=== PATIENT | male | born 1950 | race Caucasian/White ===

== ENCOUNTER 2016-09-02 06:15 | Day surgery (SDC) | payer OTHER, MEDICARE ==
--- NOTE | ~2016-09-02 | EGD ---
EGD REPORT [facility] [address] [place] [address] NAME: CHELSIE PINEDA : [birth year] STATUS : [facility]#: [id number] AGE: 66 ADM/REG DATE : 09/02/16 MR#: [id number] REPORT SERV DATE: 09/02/16 DICTATED BY: CLIFFORD MCINTOSH DATE: 09/02/16 REPORT STATUS : Draft TRANSCRIBED BY: [facility] DATE: 09/02/16 Endoscopy Center Patient Name: Chelsie Pineda Date of : 1950 Attending MD: TARA MCINTOSH MD Procedure Date No Time: 09/02/2016 Procedure: Upper GI endoscopy Indications: Epigastric abdominal pain, Gastro-esophageal reflux disease Referring MD: MARIANA RAMOS MD Medicines: See the Anesthesia note for documentation of the administered medications Complications: No immediate complications. Estimated blood loss: None. Procedure: Pre-Anesthesia Assessment: - ASA Grade Assessment: III - A patient with severe systemic disease. - Prior to the procedure, a History and Physical was performed, and patient medications and allergies were reviewed. The patient's tolerance of previous anesthesia was also reviewed. The risks and benefits of the procedure and the sedation options and risks were discussed with the patient. All questions were answered, and informed consent was obtained. Prior Anticoagulants: The patient has taken Xarelto (rivaroxaban), last dose was 4 days prior to procedure. After reviewing the risks and benefits, the patient was deemed in satisfactory condition to undergo the procedure. After obtaining informed consent, the endoscope was passed under direct vision. Throughout the procedure, the patient's blood pressure, pulse, and oxygen saturations were monitored continuously. The GIF [id number] was introduced through the mouth, and advanced to the second part of duodenum. The upper GI endoscopy was accomplished without difficulty. The patient tolerated the procedure well. Findings: Prominent ampulla, Biopsy with a cold forceps was performed for histology. The exam of the duodenum was otherwise normal. Diffuse mild inflammation characterized by congestion (edema) was found in the gastric antrum. Biopsies were taken with a cold forceps for histology. The cardia and gastric fundus were normal on retroflexion. No other significant abnormalities were identified in a careful EGD REPORT [address] [address] NAME: CHELSIE PINEDA : [birth year] STATUS : [facility]#: [id number] AGE: 66 ADM/REG DATE : 09/02/16 MR#: [id number] REPORT SERV DATE: 09/02/16 DICTATED BY: CLIFFORD MCINTOSH DATE: 09/02/16 REPORT STATUS : Draft TRANSCRIBED BY: [facility] DATE: 09/02/16 examination of the stomach. Diffuse mild erythema was found at the gastroesophageal junction. Biopsies were taken with a cold forceps for histology. No other significant abnormalities were identified in a careful examination of the esophagus. Impression: - Prominent ampulla - Gastritis. Biopsied. - Erythema at the gastroesophageal junction. Biopsied. Recommendation: - Patient has a contact number available for emergencies. The signs and symptoms of potential delayed complications were discussed with the patient. Return to normal activities tomorrow. Written discharge instructions were provided to the patient. - Regular diet. - Discharge patient to home. - Continue present medications. - Await pathology results. Procedure Code(s): --- Professional --- 16370, Esophagogastroduodenoscopy, flexible, transoral; with biopsy, single or multiple Diagnosis Code(s): --- Professional --- K29.70, Gastritis, unspecified, without bleeding K22.9, Disease of esophagus, unspecified R10.13, Epigastric pain K21.9, Gastro-esophageal reflux disease without esophagitis CPT copyright 2013 [employer]. All rights reserved. The codes documented in this report are preliminary and upon inside wireman review may be revised to meet current compliance requirements. TARA MCINTOSH MD 09/02/2016 7:53 AM This report has been signed electronically. Number of Addenda: 0 Note Initiated On: 09/02/2016 7:38 AM Scope Withdrawal Time 0 hours 0 minutes 0 seconds
--- NOTE | ~2016-09-02 | EGD ---
EGD REPORT [facility] [address] [address] NAME: CHELSIE PINEDA : [birth year] STATUS : [facility]#: [id number] AGE: 66 ADM/REG DATE : 09/02/16 MR#: [id number] REPORT SERV DATE: 09/02/16 DICTATED BY: CLIFFORD MCINTOSH DATE: 09/02/16 REPORT STATUS : Draft TRANSCRIBED BY: [facility] DATE: 09/02/16 Endoscopy Center Patient Name: Chelsie Pineda Date of : 1950 Attending MD: TARA MCINTOSH MD Procedure Date No Time: 09/02/2016 Procedure: Colonoscopy Indications: Hematochezia Referring MD: MARIANA RAMOS MD Medicines: See the Anesthesia note for documentation of the administered medications Complications: No immediate complications. Estimated blood loss: Minimal. Procedure: Pre-Anesthesia Assessment: - ASA Grade Assessment: III - A patient with severe systemic disease. After I obtained informed consent, the scope was passed under direct vision. Throughout the procedure, the patient's blood pressure, pulse, and oxygen saturations were monitored continuously. The PCF [id number] was introduced through the anus and advanced to the terminal ileum. The ileocecal valve, appendiceal orifice, terminal ileum and rectum were photographed. The entire colon was examined. The colonoscopy was performed without difficulty. The patient tolerated the procedure well. The quality of the bowel preparation was adequate. Findings: The perianal and digital rectal examinations were normal. The terminal ileum appeared normal. Two sessile polyps were found in the sigmoid colon. The polyps were medium in size. These polyps were removed with a cold snare. Resection and retrieval were complete. A sessile polyp was found in the distal transverse colon. The polyp was medium in size. The polyp was removed with a cold snare. Resection and retrieval were complete. A flat polyp was found in the mid transverse colon. The polyp was 8 mm in size. The polyp was removed with a cold snare. Resection and retrieval were complete. A sessile polyp was found in the descending colon. The polyp was 5 mm in size. The polyp was removed with a cold snare. Resection and retrieval were complete. A diffuse area of severely friable mucosa with contact bleeding was found in the recto-sigmoid colon. Biopsies were taken with a cold forceps for histology. EGD REPORT [address] [address] NAME: CHELSIE PINEDA : [birth year] STATUS : [facility]#: [id number] AGE: 66 ADM/REG DATE : 09/02/16 MR#: [id number] REPORT SERV DATE: 09/02/16 DICTATED BY: CLIFFORD MCINTOSH DATE: 09/02/16 REPORT STATUS : Draft TRANSCRIBED BY: [employer] [facility] DATE: 09/02/16 Non-bleeding internal hemorrhoids were found during retroflexion and were Grade I (internal hemorrhoids that do not prolapse). External hemorrhoids were found, and they were large. Impression: - The examined portion of the ileum was normal. - Two medium polyps in the sigmoid colon. Resected and retrieved. - One medium polyp in the distal transverse colon. Resected and retrieved. - One 8 mm polyp in the mid transverse colon. Resected and retrieved. - One 5 mm polyp in the descending colon. Resected and retrieved. - Friability with contact bleeding in the recto-sigmoid colon. Biopsied. - Non-bleeding internal hemorrhoids. - External hemorrhoids. Recommendation: - Patient has a contact number available for emergencies. The signs and symptoms of potential delayed complications were discussed with the patient. Return to normal activities tomorrow. Written discharge instructions were provided to the patient. - Regular diet. - Discharge patient to home. - Continue present medications. - Await pathology results. - Repeat colonoscopy for surveillance based on pathology results. - Patient starte on canasa suppository - Return to my office in 4 days. - Please restart your Xarelto today Procedure Code(s): --- Professional --- 49326, Colonoscopy, flexible, proximal to splenic flexure; with removal of tumor(s), polyp(s), or other lesion(s) by snare technique 47316, 59, Colonoscopy, flexible, proximal to splenic flexure; with biopsy, single or multiple Diagnosis Code(s): --- Professional --- K64.0, First degree hemorrhoids K64.4, Residual hemorrhoidal skin tags D12.4, Benign neoplasm of descending colon D12.3, Benign neoplasm of transverse colon D12.5, Benign neoplasm of sigmoid colon K92.2, Gastrointestinal hemorrhage, unspecified EGD REPORT [facility] [address] [address] NAME: CHELSIE PINEDA : [birth year] STATUS : [facility] PAT#: [id number] AGE: 66 ADM/REG DATE : 09/02/16 MR#: [id number] REPORT SERV DATE: 09/02/16 DICTATED BY: CLIFFORD MCINTOSH DATE: 09/02/16 REPORT STATUS : Draft TRANSCRIBED BY: [employer] DATE: 09/02/16 K92.Mi Cabrales CPT copyright 2013 [employer]. All rights reserved. The codes documented in this report are preliminary and upon triage rn review may be revised to meet current compliance requirements. TARA MCINTOSH MD 09/02/2016 8:18 AM This report has been signed electronically. Number of Addenda: 0 Note Initiated On: 09/02/2016 7:34 AM Scope Withdrawal Time 0 hours 12 minutes 8 seconds [address] [address]
[~2016-09-02 06:15] MED LIST: ANDROGEL TOP; ASAB PO; BRILINTA90 MG PO; BYDUREON2 MG SQ; CARDCD180 PO; CELEXA20 PO; CRESTOR5 MG PO; DRONED400 PO; FLOMAX4 PO; GLUCPH PO; JANTOVEN5 MG PO; JANUMET XR 1001 EACH PO; LOP25 PO; NIACOR500 MG PO; NIASPAN500 PO; PRILO PO; PRIN5 PO; XARELTO20 MG PO; ZOCOR40 PO
== END 2016-09-02 23:59 | disposition home or self-care (01) ==
LOC: DMU 06:15
PROVIDERS: Internal Medicine Gastroenterology
PROC: 0DBN8ZX Excision of Sigmoid Colon, Via Natural or Artificial Opening Endoscopic, Diagnostic (ICD-10-PCS; 2016-09-02)
PROC: 0DB68ZX Excision of Stomach, Via Natural or Artificial Opening Endoscopic, Diagnostic (ICD-10-PCS; 2016-09-02)
PROC: 0DB48ZX Excision of Esophagogastric Junction, Via Natural or Artificial Opening Endoscopic, Diagnostic (ICD-10-PCS; 2016-09-02)
PROC: 0DBM8ZZ Excision of Descending Colon, Via Natural or Artificial Opening Endoscopic (ICD-10-PCS; principal; 2016-09-02 11:30)
PROC: 0DBL8ZZ Excision of Transverse Colon, Via Natural or Artificial Opening Endoscopic (ICD-10-PCS; 2016-09-02 11:30)
DX: D12.5 Benign neoplasm of sigmoid colon (principal); K29.50 Unspecified chronic gastritis without bleeding; K21.0 Gastro-esophageal reflux disease with esophagitis; D12.3 Benign neoplasm of transverse colon; D12.4 Benign neoplasm of descending colon; D12.7 Benign neoplasm of rectosigmoid junction; K64.0 First degree hemorrhoids; K64.4 Residual hemorrhoidal skin tags; K92.2 Gastrointestinal hemorrhage, unspecified; K92.1 Melena; K22.9 Disease of esophagus, unspecified; R10.13 Epigastric pain; I25.2 Old myocardial infarction; E11.9 Type 2 diabetes mellitus without complications; F32.9 Major depressive disorder, single episode, unspecified; K21.9 Gastro-esophageal reflux disease without esophagitis; N40.0 Benign prostatic hyperplasia without lower urinary tract symptoms; I71.4 Abdominal aortic aneurysm, without rupture; E78.00 Pure hypercholesterolemia, unspecified; I49.9 Cardiac arrhythmia, unspecified; Z95.5 Presence of coronary angioplasty implant and graft; Z88.8 Allergy status to other drugs, medicaments and biological substances; Z79.899 Other long term (current) drug therapy; Z87.891 Personal history of nicotine dependence
CPT/HCPCS: 82962; 88305